=== PATIENT | female | born 1995 | race Hispanic/Latino ===

== ENCOUNTER 2018-06-01 13:50 | Emergency (ER) | payer OTHER ==
[2018-06-01 14:04] VITALS: BP 116/75
[2018-06-01] MEDS ORDERED: ENSKYCE 28 TAB1 EACH (14:55)
[2018-06-01] MEDS ORDERED: PREDNISONE10 M2 PO (14:56)
--- NOTE | 2018-06-01 15:05 | ED UPPER/LOWER EXTREMITY COMPL ---
History of Present Illness General Chief Complaint: Lower Extremity Problems Stated Complaint: LEFT LEG PAIN Source: patient Exam Limitations: no limitations Vital Signs & Intake/Output Vital Signs & Intake/Output Vital Signs Date Time Temp Pulse Resp B/P B/P Pulse O2 O2 Flow FiO2 Mean Ox Delivery Rate 06/01 1404 97.8 71 16 116/75 100 Room Air Allergies Coded Allergies: No Known Allergies (06/01/18) Reconcile Medications Desogestrel-Ethinyl Estradiol (Enskyce 28 Tablet) 0.15 MG-0.03 MG TABLET CONTROL (Reported) Prednisone 10 MG TABLET 1 TAB PO RA (Reported) Triage Note: PT TO ED WITH PAIN/NUMBNESS/SWELLING TO POSTERIOR RIGHT KNEE. Triage Nurses Notes Reviewed? yes Onset: Gradual Duration: day(s): Timing: recent history : No Patient currently breastfeeds: No HPI: 22-year-old female presents emergency department complaining of pain, swelling, numbness to left lower leg for the past 2 days. Patient states that she feels pain behind her left knee radiating down to calf with associated paresthesias. Patient states she is currently being worked up with a specialist for possible RA, she has been prescribed predisone 10mg about 1 week ago. She is also taking OCP. Patient reports shortness of breath associated with her current symptoms. She denies trauma or injury, chest pain, skin changes, recent travel, hemoptysis. (Alexa Bowers) Past History Travel History Traveled to [place] past 21 day No Medical History Any Pertinent Medical History? none Surgical History Surgical History: non-contributory Psychosocial History What is your primary language Indonesian Tobacco Use: Never used Family History Hx Contributory? No (Alexa Bowers) Review of Systems Review of Systems Constitutional: Reports: no symptoms. EENTM: Reports: no symptoms. Respiratory: Reports: no symptoms. Cardiovascular: Reports: no symptoms. Gastrointestinal/Abdominal: Reports: no symptoms. Genitourinary: Reports: no symptoms. Musculoskeletal: Reports: see HPI. Skin: Reports: no symptoms. Neurological/Psychological: Reports: see HPI. Hematologic/Endocrine: Reports: no symptoms. Immunological: Reports: no symptoms. All Other Systems: Reviewed and Negative (Alexa Bowers) Physical Exam Physical Exam General Appearance: well developed/nourished, no apparent distress, alert, awake Head: atraumatic, normal appearance Eyes: Bilateral: normal appearance. Ears, Nose, Throat: hearing grossly normal Neck: normal inspection, supple, full range of motion Cardiovascular/Respiratory: normal breath sounds, normal peripheral pulses, regular rate/rhythm, no respiratory distress Peripheral Pulses: 2+ dorsalis pedis (R), 2+ dorsalis pedis (L) Back: normal inspection, normal range of motion Leg Left: tenderness to posterior knee and calf, no edema Leg Right: no edema Hip Left: normal range of motion, normal inspection Hip Right: normal range of motion, normal inspection Knee Left: normal range of motion, normal inspection Knee Right: normal range of motion, normal inspection Foot Left: normal inspection, normal range of motion Foot Right: normal inspection, normal range of motion Neurologic/Tendon: reported diminished sensation to left foot and left lower leg compared to right side Skin: intact, normal color, warm/dry (Astrid FIGUEREDO,Alexa Sun) Progress Differential Diagnosis: arterial insufficiency, contusion, DVT, sprain, PE Plan of Care: Orders Procedure Date/time Status URINE 06/01 1453 Complete D-DIMER 06/01 1453 Complete COMPREHENSIVE METABOLIC PANEL 06/01 1453 Complete CBC WITHOUT DIFFERENTIAL 06/01 1453 Complete EKG 06/01 1453 Active Laboratory Tests 06/01/18 1519: Anion Gap 11, Estimated GFR > 60, BUN/Creatinine Ratio 25.7 H, Glucose 96, Calcium 9.5, Total Bilirubin 0.4, AST 18, ALT 18, Alkaline Phosphatase 45, Total Protein 6.8, Albumin 4.1, Globulin 2.7, Albumin/Globulin Ratio 1.5, D-Dimer High Sensitivty < 200, CBC w Diff NO MAN DIFF REQ, RBC 4.55, MCV 85.1, MCH 29.1, MCHC 34.2, RDW 13.2, MPV 7.7, Gran % 59.7, Lymphocytes % 31.1, Monocytes % 8.7, Eosinophils % 0.5, Basophils % 0, Absolute Granulocytes 6.4, Absolute Lymphocytes 3.3, Absolute Monocytes 0.9 H, Absolute Eosinophils 0.1, Absolute Basophils 0, Urine Test NEGATIVE Patient's ultrasound shows no evidence of DVT. Given the patient's recent shortness of breath, I ordered a d-dimer, there is a low suspicion for PE, d- dimer is negative. The patient has clear breath sounds bilaterally. THe patient recently began predisone for possible RA. This may be contributing to her reported swelling. I informed the patient that I do no appreciate significant edema on exam. Results obtained here in the emergency department today are stable. I recommended follow-up with the patient's specialist, she has an appointment scheduled for 06/06. She will return if she has any worsening symptoms or concerns. The patient agrees with the plan of care. Diagnostic Imaging: Viewed by Me: Ultrasound. Discussed w/RAD: Ultrasound. Radiology Impression: PATIENT: AZUL VICTOR PRESENT AGE: 22 PATIENT ACCOUNT NO: [id number] : 93 LOCATION: [facility] ORDERING PHYSICIAN: Alexa FIGUEREDO SERVICE DATE: 06/01/18 EXAM TYPE: US - US-UNILATERAL VENOUS DOPPLER EXAMINATION: US TRIPLEX LOWER EXTREMITY, LEFT CLINICAL INFORMATION: Pain COMPARISON: None TECHNIQUE: Color-flow triplex imaging with spectral analysis and compression Doppler were performed on the lower extremity. FINDINGS: Respiratory variation, normal compression and augmented flow are noted throughout the lower extremity. The visualized common femoral vein, superficial femoral vein, profunda femoral vein, popliteal vein and midcalf peroneal and posterior tibial venous segments show no evidence of deep venous thrombosis. There is no Almeida's cyst. IMPRESSION: No evidence of deep venous thrombosis involving the lower extremity. DICTATED BY: Tony Goldberg MD DATE/TIME DICTATED:06/01/181606 BRIDGE SAW OPERATOR:CHARLES DATE/ TIME TRANSCRIBED:06/01/181606 CONFIDENTIAL, DO NOT COPY WITHOUT APPROPRIATE AUTHORIZATION. <Electronically signed in Other Vendor System> SIGNED BY: Tony Goldberg MD 06/01/18 1631 Initial ED EKG: sinus rhythm @60bpm (Astrid FIGUEREDO,Alexa Sun) Departure Departure Disposition: HOME OR SELF CARE Condition: Stable Clinical Impression Primary Impression: Calf pain Qualifiers: Laterality: left Qualified Code: M79.662 - Pain in left lower leg Secondary Impressions: Paresthesia Referrals: Nadia Ochoa (PCP/Family) Additional Instructions: You may take ibuprofen 400-600mg every 8 hours for pain, as needed. When you see your rhuematologist on 06/06 inform them of all test results we obtained here today and ask them if you should continue ibuprofen. Return if you have any worsening symptoms or concerns. Please note that there might be incidental findings in your evaluation that are unrelated to the current emergency department visit. Please notify your primary care doctor about this emergency department visit in order to obtain and review all of the testing performed so that these incidental findings can be monitored as needed. If you had an x-ray performed, please understand that some fractures may not be seen on the initial set of x-rays. If your symptoms persist you might need a repeat set of x-rays to check for such a fracture. If you had a laceration evaluated, please understand that foreign bodies such as glass or wood may not be visible to the naked eye or on plain x-rays. If the wound becomes red, swollen, increasingly more painful or if there is any drainage from the wound, please have it reevaluated by a physician for the possibility of a retained foreign body. If you're unable to follow up as outlined in the discharge instructions please return to the emergency department. Thank you for choosing the [facility] Emergency Department for your care. It was a pleasure to serve you today. Departure Forms: Customer Survey General Discharge Information (Astrid FIGUEREDO,Alexa Sun) PA/[employer] EQUIPMENT SALESPERSON Co-Sign Statement Statement: ED Attending supervision documentation- [] I saw and evaluated the patient. I have also reviewed all the pertinent lab results and diagnostic results. I agree with the findings and the plan of care as documented in the PA's/[employer] EQUIPMENT SALESPERSON's documentation. [X] I have reviewed the ED Record and agree with the PA's/STEREO EQUIPMENT SALESPERSON's documentation. [] Additions or exceptions (if any) to the PAs/STERE[employer] EQUIPMENT SALESPERSON's note and plan are summarized below: [] (Florentino Iraheta DO
[2018-06-01 15:39] LABS: ABSOLUTE BASOPHIL COUNT 0 /CUMM (0.0-0.2); ABSOLUTE EOSINOPHIL COUNT 0.1 /CUMM (0.0-0.7); ABSOLUTE GRANULOCYTE CT 6.4 /CUMM (1.4-6.5); ABSOLUTE LYMPH COUNT 3.3 /CUMM (1.2-3.4); ABSOLUTE MONOCYTE COUNT 0.9 /CUMM (0.10-0.60); BASOPHIL % 0 % (0.0-2.0); EOSINOPHIL % 0.5 % (0-5); GRANULOCYTE % 59.7 % (42.2-75.2); HEMATOCRIT 38.7 % (37-47); MEAN CORPUSCULAR HGB 29.1 PG (27.0-31.0); MEAN CORPUSCULAR HGB CONC 34.2 G/DL (33.0-37.0); MEAN CORPUSCULAR VOLUME 85.1 FL (81.0-99.0); MEAN PLATELET VOLUME 7.7 FL (7.4-10.4); PLATELET COUNT 303 /CUMM (130-400); RBC DISTRIBUTION WIDTH 13.2 % (11.5-14.5); RED BLOOD CELL CT 4.55 /CUMM (4.20-5.40); WHITE BLOOD CELL COUNT 10.6 /CUMM (4.8-10.8)
--- NOTE | 2018-06-01 16:31 | ULTRASOUND REPORT ---
EXAMINATION: US TRIPLEX LOWER EXTREMITY, LEFT CLINICAL INFORMATION: Pain COMPARISON: None TECHNIQUE: Color-flow triplex imaging with spectral analysis and compression Doppler were performed on the lower extremity. FINDINGS: Respiratory variation, normal compression and augmented flow are noted throughout the lower extremity. The visualized common femoral vein, superficial femoral vein, profunda femoral vein, popliteal vein and midcalf peroneal and posterior tibial venous segments show no evidence of deep venous thrombosis. There is no Almeida's cyst. IMPRESSION: No evidence of deep venous thrombosis involving the lower extremity.
== END 2018-06-01 16:50 ==
LOC: ERH 13:50
PROVIDERS: Physician Assistant
DX: M79.661 Pain in right lower leg (principal); R20.2 Paresthesia of skin
CPT/HCPCS: 81025; 93005; 93010